=== PATIENT | male | born 1990 ===

== ENCOUNTER 2020-10-06 11:44 | Emergency (ER) | payer SELFPAY ==
[2020-10-06 12:11] VITALS: BP 123/64
--- NOTE | 2020-10-06 13:30 | ER Document Report ---
ED Medical Screen (RME) - General Chief Complaint: Abdominal Pain Stated Complaint: CHILLS/ NAUSEA/VOMITING Time Seen by Provider: 10/06/20 13:23 Mode of Arrival: Wheelchair Information source: Patient Notes: Patient is a 30-year-old male comes emergency room complaint of abdominal pain. Patient states he felt this abdominal pain off and on for the last 2 years over the past 4 to 5 days. Become unbearable. Patient states that pain mostly after he eats approximately 30 minutes and then he started vomiting. Last ate last night around 7 PM 30 minutes later he vomited continued to vomit all night. When he woke up this morning he was vomiting. Mostly dry heaving at this time. He denies any diarrhea. Denies any fever. No shortness of breath. Also denies any dysuria. Physical examination: Patient is a well-nourished well-developed 30-year-old male no apparent distress who appears somewhat uncomfortable. Cardiac: Patient displays a regular rate and rhythm on monitor was 76 bpm no murmur auscultated. Lungs: Bilateral breath sounds were significant for auscultation. Abdomen: Examination patient is sitting position is very difficult patient displays diffuse tenderness greater on the right upper and lower areas than on the left. Does have bowel sounds present all 4 quads. I was unable to elicit a positive Elizabeth's sign in the sitting position. However patient appeared to have increased pain and discomfort more in the right upper quadrant and right lower. Given the nonspecific location we will go ahead and do labs at this time no radiologic intervention until labs come back if liver functions are elevated will go for an ultrasound. I have greeted and performed a rapid initial assessment of this patient. A comprehensive ED assessment and evaluation of the patient, analysis of test results and completion of the medical decision making process will be conducted by additional ED providers. Dictation of this chart was performed using voice recognition software; therefore, there may be some unintended grammatical errors. Physical Exam - Vital signs Vitals: Temp Pulse Resp BP Pulse Ox 98.3 F 77 16 123/64 97 10/06/20 12:11 10/06/20 12:11 10/06/20 12:11 10/06/20 12:11 10/06/20 12:11 Course - Vital Signs Vital signs: Temp Pulse Resp BP Pulse Ox 98.3 F 77 16 123/64 97 10/06/20 12:11 10/06/20 12:11 10/06/20 12:11 10/06/20 12:11 10/06/20 12:11
[2020-10-06 14:35] LABS: ABSOLUTE LYMPHOCYTES (AUTO) 1.3 10^3/uL (0.5-4.7); ABSOLUTE MONOCYTES (AUTO) 0.2 10^3/uL (0.1-1.4); ABSOLUTE NEUT (AUTO) 8.6 10^3/uL (1.7-8.2); BASOPHILS % (AUTO) 0.2 % (0-2); EOSINOPHILS % (AUTO) 0.1 % (0-6); HEMATOCRIT 39.4 % (37.9-51.0); HEMOGLOBIN 12.8 g/dL (13.5-17.0); LYMPHOCYTES % (AUTO) 12.5 % (13-45); MEAN CORPUSCULAR HEMOGLOBIN 29.3 pg (27.0-33.4); MEAN CORPUSCULAR HGB CONC 32.4 g/dL (32.0-36.0); MEAN CORPUSCULAR VOLUME 91 fl (80-97); MONOCYTES % (AUTO) 2.3 % (3-13); PLATELET COUNT 200 10^3/uL (150-450); RED BLOOD COUNT 4.35 10^6/uL (4.35-5.55); RED CELL DISTRIBUTION WIDTH 12.8 % (11.5-14.0); SEGMENTED NEUTROPHILS % (AUTO) 84.9 % (42-78); TOTAL CELLS COUNTED % (AUTO) 100 %; WHITE BLOOD COUNT 10.2 10^3/uL (4.0-10.5)
[2020-10-06 14:39] LABS: ALKALINE PHOSPHATASE 72 U/L (38-126); ANION GAP 8 (5-19); ASPARTATE AMINO TRANSFERASE 36 U/L (17-59); BILIRUBIN,DIRECT 0.2 mg/dL (0.0-0.4); BILIRUBIN,TOTAL 0.9 mg/dL (0.2-1.3); BLOOD UREA NITROGEN 12 mg/dL (7-20); CALCIUM 9.7 mg/dL (8.4-10.2); CARBON DIOXIDE 31 mmol/L (22-30); CHLORIDE 103 mmol/L (98-107); GLUCOSE 78 mg/dL (75-110); POTASSIUM 4.4 mmol/L (3.6-5.0); TOTAL PROTEIN 8.8 g/dL (6.3-8.2)
[2020-10-06 14:46] LABS: APPEARANCE,URINE CLEAR; BILIRUBIN,URINE NEGATIVE (NEGATIVE); COLOR,URINE YELLOW; GLUCOSE, URINE NEGATIVE (NEGATIVE); KETONES,URINE TRACE mg/dL (NEGATIVE); LEUKOCYTE ESTERASE,URINE NEGATIVE (NEGATIVE); NITRITE,URINE NEGATIVE (NEGATIVE); PROTEIN,URINE 30 mg/dL (NEGATIVE); URINE SPECIFIC GRAVITY 1.026
== END 2020-10-06 15:50 | disposition left against medical advice (07) ==
LOC: ER 11:44
DX: R10.9 Unspecified abdominal pain (principal); R11.2 Nausea with vomiting, unspecified; R10.817 Generalized abdominal tenderness; Z53.29 Procedure and treatment not carried out because of patient's decision for other reasons
CPT/HCPCS: 36415; 80053; 81001; 83690; 85025; 87086; 99281